=== PATIENT | male | born 1965 | race Caucasian/White ===

== ENCOUNTER 2017-08-12 06:57 | Day surgery (SDC) | payer OTHER ==
[~2017-08-12 06:57] MED LIST: ACETAMINOPHEN 1,000 MG/100 ML BTL IV ONE
[2017-08-12] MEDS ORDERED: ONDANSETRON HCL IV 4 MG/2 ML VIAL IVP ONE (06:58)
[2017-08-12] MEDS ORDERED: SEVOFLURANE 250 ML INH ONE (06:58)
[2017-08-12] MEDS ORDERED: LIDOCAINE 2% MDV (20MG/ML) 20ML VIAL IV ONE (06:58)
[2017-08-12] MEDS ORDERED: FENTANYL PF 100MCG/2ML VIAL IV ONE (06:58)
[2017-08-12] MEDS ORDERED: MIDAZOLAM HCL 2MG/2ML VIAL IV ONE (06:58)
[2017-08-12] MEDS ORDERED: KETOROLAC 30 MG/ML VIAL IVP ONE (06:58)
[2017-08-12] MEDS ORDERED: PROPOFOL 10 MG/ML VIAL IV ONE (06:58)
--- NOTE | 2017-08-15 13:10 | Operative Note ---
DATE OF SURGERY: 08/12/2017 Surgeon: Michael Boston DO PREOPERATIVE DIAGNOSIS: Carpal tunnel syndrome of the right wrist. POSTOPERATIVE DIAGNOSIS: Carpal tunnel syndrome of the right wrist. OPERATION: Decompression right median nerve of the wrist using 3.5 loop magnification. DESCRIPTION OF PROCEDURE: This 52-year-old male was taken to the operating room and placed in the supine position on the operating room table. General anesthesia was induced. The right upper extremity was elevated, prepped with Hibiclens, and draped in the usual sterile fashion. It was exsanguinated and the tourniquet inflated to 250 mmHg. A palmar incision was utilized following the hypothenar crease dissecting down through the skin and subcutaneous tissue from the level of the base of the web space of the thumb to the flexor crease of the wrist. The flexor retinaculum was identified, punctured, split to its proximal margin and then with contents of the carpal tunnel under direct vision, the transverse carpal ligament was transected along its ulnar border. The radial flap was raised to expose the entire median nerve under the transverse carpal ligament. Recurrent motor branch of the median nerve was identified and found to be normal. The nerve was otherwise unremarkable. The wound was irrigated and hemostasis was obtained with the electrocautery. The tourniquet released and hemostasis obtained. The wound was closed with interrupted 6-0 nylon suture. Sterile dressings were applied with plaster splint immobilization and the patient was taken to the recovery room in satisfactory condition. GROSS PATHOLOGY: This patient demonstrated carpal tunnel syndrome and decompression of the median nerve was performed as described above. No gross pathology of the median nerve was identified. CC: Dana HAN
== END 2017-08-12 09:55 | disposition home or self-care (01) ==
LOC: SUR 06:57
PROVIDERS: ATTEND Orthopaedic Surgery
DX: G56.01 Carpal tunnel syndrome, right upper limb (principal)
CPT/HCPCS: 64721; 01810; J1885; J2405; J3010